=== PATIENT | female | born 1980 | race Caucasian/White ===

== ENCOUNTER 2017-05-17 20:09 | Inpatient (IN) | payer MEDICAID, OTHER ==
[~2017-05-17] VITALS: Ht 165.1 cm; Wt 65.8 kg
--- NOTE | 2017-05-17 20:36 | NUR ---
PT BBRA FROM HOME WITH C/O OF GENERALIZED WEAKNESS/SYNCOPE X TODAY. PER EMS, PT WAS FOUND ON THE FLOOR OF HER TOILETTE, COOL/PALE/DIAPHORETIC TO TOUCH. PT STATES SHE "PASSED OUT WHILE TRYING TO HAVE A BOWEL MOVEMENT". PT IS AAOX4 . SKIN COOL AND PALE. RESP EVEN AND UNLABORED. NO S/S OF ACUTE DISTRESS NOTED. PT STATES LLQ ABD PAIN NONE RADIATING 09/14. PT STATES SHE USUALLY HAS 6 BM'S A DAY, BUT FOR THE PAST 2 WEEKS SHES ONLY BEEN ABLE TO HAVE 2 BM'S. VSS. 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 PT GOWNED AND PLACED ON MONITOR AND POX. PT COMFORT AND SAFETY IN PLACE. AWAITING MD FOR EVAL.
[2017-05-17 21:00] LABS: BASOPHILS # (AUTO) 0.6 /CMM (0.0-0.2); BASOPHILS % (AUTO) 3.2 % (0.0-2.0); EOSINOPHILS # (AUTO) 0.1 /CMM (0.0-0.7); EOSINOPHILS % (AUTO) 0.7 % (0.0-6.0); HEMATOCRIT 38 % (33-45); HEMOGLOBIN 12.9 g/dL (11.5-14.8); LYMPHOCYTES # (AUTO) 0.7 /CMM (0.8-4.8); LYMPHOCYTES % (AUTO) 4.2 % (20.0-44.0); MEAN CORPUSCULAR HEMOGLOBIN 31 PG (26.0-33.0); MEAN CORPUSCULAR HGB CONC 34 g/dl (31.0-36.0); MEAN CORPUSCULAR VOLUME 90 fL (82-100); MONOCYTES # (AUTO) 0.9 /CMM (0.1-1.30); NEUTROPHILS # (AUTO) 15.3 /CMM (1.8-8.9); NEUTROPHILS % (AUTO) 86.9 % (43.0-81.0); PLATELET COUNT (AUTO) 396 /CMM (150-450); RDW COEFFICIENT OF VARIATION 12.5 (11.5-15.0); RED BLOOD CELL COUNT(AUTO) 4.17 MIL/uL (4.0-5.2); WHITE BLOOD COUNT (AUTO) 17.6 K/uL (4.3-11.0)
--- NOTE | 2017-05-17 21:01 | NUR ---
urine sent to lab
[2017-05-17 21:02] LABS: APPEARANCE,URINE Cloudy (CLEAR); BILIRUBIN,URINE MODERATE (NEGATIVE); BLOOD, URINE Large Ery/uL (NEGATIVE); COLOR,URINE Red (YELLOW); KETONES,URINE >=160 (NEGATIVE); LEUKOCYTE ESTERASE ,URINE Negative (NEGATIVE); NITRITE, URINE Negative (NEGATIVE); PH,URINE 5.5 (5.0-8.0); PROTEIN,URINE 100 mg/dl (NEGATIVE); UGLUCOSE Negative (NEGATIVE); UROBILINOGEN,URINE 0.2 EU/dL (0.2)
[2017-05-17 21:05] LABS: BACTERIA,URINE Rare /HPF (None Seen); RBC,URINE TOO NUMEROUS TO COUN /HPF (0-2); SQUAMOUS EPITHELIAL CELL,UR Few /HPF (None Seen); WBC,URINE NONE SEEN /HPF (0-3)
[2017-05-17 21:11] LABS: CALCIUM, SERUM 8.8 mg/dL (8.5-10.1); POTASSIUM 3.6 mmol/L (3.5-5.1)
[2017-05-17] MEDS ORDERED: ONDANSETRON HCL/PF 4 MG/2 ML VIAL ONE (21:13)
--- NOTE | 2017-05-17 21:22 | NUR ---
PT TO CT
[2017-05-17] MEDS ORDERED: ONDANSETRON HCL/PF 4 MG/2 ML VIAL IVP ONE (21:30)
[2017-05-17] MEDS ORDERED: IV NS 0.9% 1,000 ML BAG IV ONE ×2 (21:30→22:30)
[2017-05-17 21:41] LABS: INR 0.94 (0.85-1.15)
[2017-05-17 21:52] LABS: ALBUMIN 3.3 g/dL (3.4-5.0); BILIRUBIN,DIRECT 0.1 mg/dL (0.0-0.2); BILIRUBIN,TOTAL 0.3 mg/dL (0.2-1.0); TOTAL PROTEIN, SERUM 7.3 g/dL (6.4-8.2)
[2017-05-17 21:53] LABS: ALCOHOL, BLOOD < 3 mg/dL (0-0); TROPONIN I < 0.170 ng/mL (0.00-0.056)
--- NOTE | 2017-05-17 22:15 | NUR ---
Patient is resting comfortably in bed with eyes closed. Easily aroused. VSS. No pt discomfort noted
--- NOTE | 2017-05-17 22:35 | NUR ---
PT BACK FROM CT
[2017-05-17] MEDS ORDERED: MORPHINE SULFATE INJ 4 MG/ML DISP.SYRIN ONE (23:15)
[2017-05-17] MEDS ORDERED: HYDROMORPHONE 1 MG/1 ML DISP.SYRIN IV ONE (23:30)
[2017-05-17] MEDS ORDERED: MORPHINE SULFATE INJ 10 MG/ML DISP.SYRIN IV ONE (23:30)
--- NOTE | 2017-05-17 23:37 | NUR ---
GAVE REPORT TO COMPUTER TECH ALLA FOR LARS.
[2017-05-18] VITALS: BP 118/78
--- NOTE | 2017-05-18 | NUR ---
RN OPENING NOTES RECEIVED PATIENT FROM ER, ALERT AND ORIENTED X4, FAMILY PRESENT AT BEDSIDE. VS STABLE. PATIENT C/O FATIGUE AND WEAKNESS. RESPIRATIONS EVEN AND UNLABORED. NO SOB NOTED. BS X4. IV ACCESS 18 G ON LEFT AC PATENT AND INTACT, NO REDNESS OR INFILTRATION NOTED. TELE MONITOR IS IN PLACE, SR 89 BPM. WAITING FOR MD ORDERS. BED IN LOW AND LOCKED POSITION, SIDE RAILS X2. CALL LIGHT WITHIN EASY REACH. WILL CONTINUE TO MONITOR AND ASSESS DURING THE SHIFT.
[2017-05-18] MEDS ORDERED: MAG HYDROX/AL HYDROX/SIMETH 30 ML UDC PO PRN (02:00)
[2017-05-18] MEDS ORDERED: ZOLPIDEM TARTRATE 5 MG TABLET PO PRN (02:00)
[2017-05-18] MEDS ORDERED: Z GUARD REMEDY 2 OZ OINT TP PRN (02:00)
[2017-05-18] MEDS ORDERED: MORPHINE SULFATE INJ 2 MG/ML DISP.SYRIN IV PRN (02:00)
[2017-05-18] MEDS ORDERED: ACETAMINOPHEN 325 MG TABLET PO PRN (02:00)
[2017-05-18] MEDS ORDERED: MAGNESIUM HYDROXIDE 30 ML UDC PO PRN (02:00)
[2017-05-18] MEDS ORDERED: HYDROCODONE/APAP 5/325MG 1 EACH TABLET PO PRN (02:00)
[2017-05-18] MEDS: IV D5/0.45 NACL 1,000 ML IV SCH ×3 (02:08→23:31)
[2017-05-18 04:00] VITALS: BP 144/94
--- NOTE | 2017-05-18 06:47 | NUR ---
RN CLOSING NOTES PATIENT IS SLEEPING IN THE BED, EASY TO AROUSE, ALERT AND ORIENTED X4. FIANCE PRESENT AT BEDSIDE. VS STABLE. RESPIRATIONS EVEN AND UNLABORED. NO SOB NOTED. IV ACCESS 18 G ON LEFT AC PATENT AND INTACT, INFUSING D5 1/2 NS AT 100 ML/HR, NO REDNESS OR INFILTRATION NOTED. TELE MONITOR IS IN PLACE, SR 72 BPM. BED IN LOW AND LOCKED POSITION, SIDE RAILS X2. CALL LIGHT WITHIN EASY REACH. WILL ENDORSE TO RN DAY SHIFT FOR LARS.
[2017-05-18] MEDS ORDERED: METO25TA6 PO (07:58)
[2017-05-18 08:00] VITALS: BP 127/86
--- NOTE | 2017-05-18 08:00 | NUR ---
SPORTS BETTING MANAGER AM NOTES PATIENT IS ALERT AND ORIENTED X4. FIANCE PRESENT AT BEDSIDE. VS STABLE. RESPIRATIONS EVEN AND UNLABORED. NO SOB NOTED. IV ACCESS 18 G ON LEFT AC PATENT AND INTACT, INFUSING D5 1/2 NS AT 100 ML/HR, NO REDNESS OR INFILTRATION NOTED. TELE MONITOR IS IN PLACE, SR 72 BPM. ON NPO.DENYING ANY PAIN OR DISTRESS.BED IN LOW AND LOCKED POSITION, SIDE RAILS X2. CALL LIGHT WITHIN EASY REACH.
[2017-05-18] MEDS: PANTOPRAZOLE 40 MG VIAL IV SCH (08:49)
[2017-05-18] MEDS: MORPHINE SULFATE INJ 4 MG/ML DISP.SYRIN IV PRN ×3 (12:47→21:53)
[2017-05-18] MEDS: ONDANSETRON HCL/PF 4 MG/2 ML VIAL IVP PRN ×3 (12:49→21:59)
--- NOTE | 2017-05-18 13:00 | NUR ---
PT AMBULATES IN THE HALLWAY FREQUENTLY WITH HER FIANCEE WITH STEADY GAIT.NGT REMAINS INTACT AND CLAMPED.WITH BRP.PT MADE SOFT MOD BM IN THE TOILET BUT SINCE THE PT HAS HER MENSTRUATION PERIOD,THE STOOL HAS BLOOD ON IT.WE'LL COLLECT AGAIN LATER
[2017-05-18] MEDS ORDERED: DIATR MEGLU/DIATRIZOATE SODIUM 120 ML BOTTLE (GASTROGRAPHIN) ONE (15:59)
[2017-05-18 16:00] VITALS: BP 126/79
--- NOTE | 2017-05-18 19:00 | NUR ---
PT CAME BACK AND COMPLETED SMALL BOWEL FOLLOW THROUGH PROCEDURE.
--- NOTE | 2017-05-18 19:06 | NUR ---
Met with patient and family at bedside. She lives with her fiance in [place], [place], both currently visiting patient mother who lives in [place]. Patient is ambulatory and independent with adl's. Has good family support. No dc planning needs identified at this time. Addendum: 05/18/17 at 1906 by TELLO MOROCHO RN Amended: Links added.
--- NOTE | 2017-05-18 19:30 | NUR ---
RN OPENING NOTES PATIENT IS IN BED, ALERT AND ORIENTED X4. FIANCE PRESENT AT BEDSIDE. VS STABLE. RESPIRATIONS EVEN AND UNLABORED. NO SOB NOTED. IV ACCESS 18 G ON LEFT AC PATENT AND INTACT, INFUSING D5 1/2 NS AT 100 ML/HR, NO REDNESS OR INFILTRATION NOTED. NO C/O PAIN AT THIS TIME. NG TUBE IS CONNECTED TO LOW INTERMEDIATE SUCTION. BED IN LOW AND LOCKED POSITION, SIDE RAILS X2. CALL LIGHT WITHIN EASY REACH. WILL CONTINUE TO MONITOR AND ASSESS DURING THE SHIFT.
[2017-05-18 20:00] VITALS: BP 133/87
[2017-05-19] MEDS: ONDANSETRON HCL/PF 4 MG/2 ML VIAL IVP PRN (06:07)
[2017-05-19] MEDS: MORPHINE SULFATE INJ 4 MG/ML DISP.SYRIN IV PRN (06:08)
--- NOTE | 2017-05-19 06:53 | NUR ---
RN CLOSING NOTES PATIENT IS IN BED, ALERT AND ORIENTED X4. FIANCE PRESENT AT BEDSIDE. VS STABLE. RESPIRATIONS EVEN AND UNLABORED. NO SOB NOTED. IV ACCESS 18 G ON LEFT AC PATENT AND INTACT, INFUSING D5 1/2 NS AT 100 ML/HR, NO REDNESS OR INFILTRATION NOTED. NO C/O PAIN AT THIS TIME. NG TUBE IS CONNECTED TO LOW INTERMITTENT SUCTION. ALL NEEDS ARE MET AND MEDICATIONS GIVEN PER MD ORDER. BED IN LOW AND LOCKED POSITION, SIDE RAILS X2. CALL LIGHT WITHIN EASY REACH. WILL ENDORSE TO RN DAY SHIFT FOR LARS.
[2017-05-19 06:59] LABS: BASOPHILS % (AUTO) 0.3 % (0.0-2.0); HEMATOCRIT 31 % (33-45); HEMOGLOBIN 10.5 g/dL (11.5-14.8); LYMPHOCYTES # (AUTO) 1.2 /CMM (0.8-4.8); LYMPHOCYTES % (AUTO) 19.6 % (20.0-44.0); MEAN CORPUSCULAR HEMOGLOBIN 31 PG (26.0-33.0); MEAN CORPUSCULAR HGB CONC 34 g/dl (31.0-36.0); MEAN CORPUSCULAR VOLUME 92 fL (82-100); MONOCYTES # (AUTO) 0.6 /CMM (0.1-1.30); MONOCYTES % (AUTO) 9.9 % (2.0-12.0); NEUTROPHILS # (AUTO) 4.3 /CMM (1.8-8.9); NEUTROPHILS % (AUTO) 70.2 % (43.0-81.0); PLATELET COUNT (AUTO) 306 /CMM (150-450); RDW COEFFICIENT OF VARIATION 13.6 (11.5-15.0); RED BLOOD CELL COUNT(AUTO) 3.37 MIL/uL (4.0-5.2); WHITE BLOOD COUNT (AUTO) 6.1 K/uL (4.3-11.0)
[2017-05-19 07:02] LABS: CALCIUM, SERUM 7.8 mg/dL (8.5-10.1); CREATININE 0.8 mg/dL (0.6-1.3); MAGNESIUM 1.5 mg/dL (1.8-2.4); POTASSIUM 3.4 mmol/L (3.5-5.1)
[2017-05-19 08:00] VITALS: BP 133/99
--- NOTE | 2017-05-19 08:00 | NUR ---
MS RN AM NOTES PATIENT IS ALERT AND ORIENTED X4. FIANCE PRESENT AT BEDSIDE. VS STABLE. RESPIRATIONS EVEN AND UNLABORED. NO SOB NOTED. IV ACCESS 18 G ON LEFT AC IS LEAKING DUE TO FREQUENT BENDING OF HER ARM.NO REDNESS OR INFILTRATION NOTED. WILL CHANGE IV SITE.PT REFUSED TO BE HOOKED ON IVF WELL SAYING SHE WALKS OFTEN.EVEN IF EXPLAINED TO HER THAT THE IVF IS FOR HER HYDRATION SINCE SHE IS ON NPO BUT PT INSISTS TO REFUSE.WITH NGT TO LOW INTERMITTENT SUCTION WITH NO DRAINAGE.DENYING ANY PAIN OR DISTRESS.BED IN LOW AND LOCKED POSITION, SIDE RAILS X2. CALL LIGHT WITHIN EASY REACH.
[2017-05-19] MEDS: PANTOPRAZOLE 40 MG VIAL IV SCH (08:58)
--- NOTE | 2017-05-19 09:30 | NUR ---
NGT REMOVED WITHOUT DRAINAGE AND PT TOLERATED WELL.PT WAS SO GLAD TO HAVE IT REMOVED.STARTED ON CLEAR LIQUIDS AND WILL MONITOR FOR PT'S TOLERANCE.
[2017-05-19] MEDS: Magnesium 1GM/D5W 100ML PREMIX 100 ML IV SCH ×2 (11:43→13:48)
[2017-05-19] MEDS ORDERED: Potassium Chloride 10 MEQ in IV D5W 50 ML IV SCH (12:00)
[2017-05-19] MEDS ORDERED: POTASSIUM CHLORIDE 20 MEQ POWDER PACKET PO SCH (12:00)
[2017-05-19] MEDS ORDERED: POTASSIUM CHLORIDE 20 MEQ TAB.PRT.SR PO ONE (13:00)
--- NOTE | 2017-05-19 15:03 | NUR ---
PT WAS ABLE TO TOLERATE SOFT DIET AND DISCHARGE INSTRUCTIONS,MED RECONCILIATION,MED AND HEALTH TEACHING GIVEN TO THE PT.IV H/L REMOVED TO LT HAND WITHOUT BLEEDING NOTED.PT TOLERATED WELL.DISCHARGED HOME WITH STABLE V/S DENYING ANY PAIN OR DISTRESS.
== END 2017-05-19 15:10 | disposition home or self-care (01) | DRG 247 ==
LOC: ER 20:12 → TELE 23:12 → MED 05-18 10:13
PROVIDERS: ADMIT Internal Medicine; ATTEND Internal Medicine
DX: K56.600 Partial intestinal obstruction, unspecified as to cause (principal); R65.10 Systemic inflammatory response syndrome (SIRS) of non-infectious origin without acute organ dysfunction; N20.0 Calculus of kidney; E88.09 Other disorders of plasma-protein metabolism, not elsewhere classified; Z90.49 Acquired absence of other specified parts of digestive tract; R55 Syncope and collapse; N28.1 Cyst of kidney, acquired; R79.89 Other specified abnormal findings of blood chemistry; D72.829 Elevated white blood cell count, unspecified
CPT/HCPCS: 36415; 70450-TC; 71045-TC; 74250-TC; 80048-TC; 80076-TC; 80305; 81000-TC; 82962-TC; 83605-TC; 83690-TC; 83735-TC; 84100-TC; 84484-TC; 84703-TC; 85025-TC; 85730-TC; 87040-TC; 87081-TC; 87086-TC; C9113; G0480; J2270; J2405; J3475; J3480; J3490; J7030; J7060; Q9963